=== PATIENT | male | born 1950 | race Caucasian/White ===

== ENCOUNTER 2021-06-28 07:23 | Day surgery (SDC) | payer OTHER ==
[~2021-06-28 07:23] MED LIST: BRIMONIDINE 0.2% OPHTH DROPS 5 ML ONE; BSS/LIDOCAINE/EPINEPHRINE 1 ML SYRINGE ONE; CYCLOPENTOLATE 1% OPHTH DROPS 2 ML ONE; EPINEPHrine 1 MG/ML AMP ONE; KETOROLAC 0.45% OPHTH DROPS ONE; PHENYLEPHRINE 2.5% OPHTH 2 ML DROPS ONE; PROPARACAINE 0.5% OPHTH DROPS 15 ML ONE; TIMOLOL 0.5% OPHTH DROPS ONE; TRIAMCIN/MOXIFLOX OPHTHALMIC 0.6 ML VIAL IO ONE; VANCOMYCIN OPHTHALMI 8MG/0.8ML 8 MG/0.8 ML SYRINGE IO ONE
[2021-06-28] MEDS ORDERED: LACTATED RINGERS 1,000 ML IV ONE ×2 (07:46→08:57)
[2021-06-28] MEDS ORDERED: MIDAZOLAM 2 MG/2 ML VIAL ONE (08:14)
--- NOTE | 2021-06-28 08:19 | ANESTHESIA ---
Pre-Anesthesia VS, & Labs - Diagnosis right eye nuclear sclerotic cataract - Procedure right eye cataract extraction with IOL implant Vital Signs: Temp Pulse Resp BP Pulse Ox 36.2 C L 55 L 16 151/76 H 98 06/28/21 07:46 06/28/21 07:46 06/28/21 07:46 06/28/21 08:13 06/28/21 07:46 Height: 5 ft 8 in Weight (kg): 111 kg Body Mass Index: 37.2 BMI Classification: Obese - NPO Last Fluid Intake: 30 black coffee Home Medications and Allergies Home Medications: Ambulatory Orders Amlodipine Besylate [Norvasc] 2 tab PO DAILY 06/28/21 Aspirin [[place] Aspirin] 1 tab PO DAILY 06/28/21 Atorvastatin [Lipitor] 1 tab PO DAILY 06/28/21 Flunisolide 1 spray INH DAILY 06/28/21 Latanoprost/Pf [Latanoprost 0.005% Eye Drop] 1 drops OP DAILY 06/28/21 Losartan/Hydrochlorothiazide [Hyzaar 100-12.5 Tablet] 1 tab PO DAILY 06/28/21 Multivit-Min/FA/Lycopen/Lutein [Centrum Silver Men Tablet] 1 tab PO DAILY 06/28/21 Amlodipine Besylate [Norvasc] 2 tab PO DAILY 06/28/21 Aspirin [[place] Aspirin] 1 tab PO DAILY 06/28/21 Atorvastatin [Lipitor] 1 tab PO DAILY 06/28/21 Flunisolide 1 spray INH DAILY 06/28/21 Latanoprost/Pf [Latanoprost 0.005% Eye Drop] 1 drops OP DAILY 06/28/21 Losartan/Hydrochlorothiazide [Hyzaar 100-12.5 Tablet] 1 tab PO DAILY 06/28/21 Multivit-Min/FA/Lycopen/Lutein [Centrum Silver Men Tablet] 1 tab PO DAILY 06/28/21 Allergies/Adverse Reactions: Allergies Allergy/AdvReac Type Severity Reaction Status Date / Time sulfamethoxazole AdvReac Respiratory Verified 06/28/21 08:04 [From Bactrim] trimethoprim [From Bactrim] AdvReac Respiratory Verified 06/28/21 08:04 Anes History & Medical History - Anesthetic History Anesthesia Complications: reports: No previous complications - Medical History Cardiovascular: reports: Hypertension, Arrhythmia (PVCs) Pulmonary: reports: None Gastrointestinal: reports: Colon polyps Urinary: reports: None Neuro: reports: None Musculoskeletal: reports: Osteoarthritis Endocrine/Autoimmune: reports: None Blood Disorders: reports: None Skin: reports: None Smoking Status: Former smoker Psychosocial: reports: Alcohol (5 beers per week) History of Cancer?: No - Surgical History General: reports: Appendectomy, Colonoscopy Orthopedic: reports: Knee replacement Exam General: Alert, Oriented x3, Cooperative, No acute distress Dental: WNL Mouth Openin Fingerbreadth Mallampati classification: II Thyromental Distance: 4-6 cm Mental/Cognitive Status: Alert/Oriented X3, Normal for patient Plan Anesthesia Type: MAC Consent for Procedure(s) Verified and Reviewed: Yes Code Status: Attempt Resuscitation ASA classification: 2-Mild systemic disease Is this case an emergency?: No
[2021-06-28] MEDS ORDERED: CHONDR SULF/HYALURONATE SYRINGE IO ONE (08:45)
[2021-06-28] MEDS ORDERED: BRIMONIDINE 0.2% OPHTH DROPS 5 ML OPTH ONE (08:45)
[2021-06-28] MEDS ORDERED: EPINEPHrine 1 MG/ML AMP IR ONE (08:45)
[2021-06-28] MEDS ORDERED: VANCOMYCIN OPHTHALMI 8MG/0.8ML 8 MG/0.8 ML SYRINGE IO ONE (08:46)
[2021-06-28] MEDS ORDERED: PROPARACAINE 0.5% OPHTH DROPS 15 ML EACHEYE ONE (08:46)
[2021-06-28] MEDS ORDERED: TRIAMCIN/MOXIFLOX OPHTHALMIC 0.6 ML VIAL IO ONE (08:46)
[2021-06-28] MEDS ORDERED: BSS/LIDOCAINE/EPINEPHRINE 1 ML SYRINGE IO ONE (08:46)
[2021-06-28] MEDS ORDERED: TIMOLOL 0.5% OPHTH DROPS OPTH ONE (08:46)
--- NOTE | 2021-06-28 09:05 | OPERATIVE REPORT ---
Operative Report - Other Other Information/Narrative: Date of Surgery: 06/28/21 Preop Dx: Visually significant cataract right eye. This was the first cataract surgery. Postop Dx: Same Procedure: Phacoemulsification with posterior chamber intraocular lens implant right eye Surgeon: Dr. Zay Villanueva Anesthesia: Monitored anesthesia care Complications: None Operative Indications: This is a 70-year-old M with progressive vision loss in the right eye due to 3+ nuclear sclerotic cataract. Best corrected visual acuity was 20/30 with glare to 20/100 vision in the right eye. Indications for surgery were: - Overall decrease in vision - Difficulty seeing words on a computer screen - Difficulty seeing words, closed captions, or game scores on TV - Difficulty seeing street signs - Difficulty driving in low light or at night - Difficulty driving at night because of headlights from other vehicles The patient was consented at length concerning the risks and benefits of cataract surgery after which the patient expressed a desire to proceed with surgery. Operative Procedure: The patient was taken into OR#3 and placed under monitored anesthesia care. A surgical time-out was conducted confirming correct patient, correct procedure, and correct surgical site. The patient was given topical anesthesia and then prepped and draped in the usual sterile fashion. The eye was entered at the 6 and 3 oclock positions. Intracameral Shugarcaine was injected into the anterior chamber followed by a dispersive viscoelastic. A continuous-tear curvilinear capsulorhexis was performed. The nucleus was hydrodissected and phacoemulsified. The cortex was evacuated using automated infusion and aspiration. A cohesive viscoelastic was injected into the capsular bag and a 19.0 diopter intraocular lens was inserted into the bag. Infusion and aspiration were used to evacuate the viscoelastic materials from the eye. The wounds were hydrated and the eye inflated to physiologic pressure using balanced salt solution. Approximately 0.25ml of a mixture of triamcinolone and moxifloxacin was injected trans-sclerally into the vitreous in the inferotemporal quadrant using a 30 gauge cannula. An additional 0.55ml of a mixture of triamcinolone, moxifloxacin, and vancomycin was injected subconjunctivally in the superior quadrant for infection and inflammation prophylaxis. Wound integrity was checked with Weck-Trinity sponges. The patient was taken from the operating room in good condition and given post-op instructions.
[2021-06-28 09:23] VITALS: BP 138/80
--- NOTE | 2021-06-28 15:55 | ANESTHESIA POST OP EVALUATION ---
Anesthesia Post Eval - Post Anesthesia Eval Vitals: Last Vital Signs Temp 36.8 C 06/28/21 09:15 Pulse 72 06/28/21 09:15 Resp 15 06/28/21 09:15 BP 138/80 H 06/28/21 09:15 Pulse Ox 99 06/28/21 09:15 CV Function Including HR & BP: Stable Pain Control: Satisfactory Nausea & Vomiting: Negative Mental Status: Baseline Respiratory Status: Airway Patent Hydration Status: Satisfactory Anesthesia Complications: None
== END 2021-06-28 07:24 | disposition home or self-care (01) ==
LOC: SDS 07:23
PROVIDERS: ATTEND Ophthalmology
DX: H25.11 Age-related nuclear cataract, right eye (principal); I10 Essential (primary) hypertension; I49.3 Ventricular premature depolarization; N40.0 Benign prostatic hyperplasia without lower urinary tract symptoms; Z87.891 Personal history of nicotine dependence; E66.9 Obesity, unspecified; Z68.37 Body mass index [BMI] 37.0-37.9, adult; Z79.82 Long term (current) use of aspirin; Z79.899 Other long term (current) drug therapy
CPT/HCPCS: 66984; A9270; J3490; J7120; V2787